=== PATIENT | male | born 1960 | race Caucasian/White ===

== ENCOUNTER 2023-09-28 10:18 | Emergency (ER) | payer OTHER ==
--- NOTE | 2023-09-28 11:10 | ED Physician Documentation ---
PD HPI URI - Stated complaint Stated Complaint: CONGESTION,UNWELL - Chief complaint Chief Complaint: Resp - Additional information Additional information: 63-year-old male with history of type 2 diabetes presents emergency department for nausea, malaise, cough, fevers. Patient says that he feels like he has rhinovirus he feels like there is a lot of congestion in his throat has been having fevers at home but he does state that his fevers at home have been up to 98 F, educated him that fever in adult is 101 F and he says that he has not had any fevers that high. He recently quit smoking right before he got sick. He is coughing up bright green phlegm he also says that his blood sugars have been hard to control despite not eating much feels generalized body aches and very dehydrated no emesis no diarrhea. PD PAST MEDICAL HISTORY - Past Medical History Past Medical History: Yes Cardiovascular: Hypertension Endocrine/Autoimmune: Type 2 diabetes - Past Surgical History Past Surgical History: No - Present Medications Home Medications: Ambulatory Orders Medication Instructions Recorded Confirmed FLUoxetine [PROzac] 20 mg PO DAILY 09/28/23 09/28/23 Gabapentin [Neurontin] 300 mg PO HS 09/28/23 09/28/23 Lisinopril [Zestril] 40 mg PO DAILY 09/28/23 09/28/23 Omeprazole 20 mg PO DAILY 09/28/23 09/28/23 Ondansetron Odt [Zofran Odt] 4 mg TL Q6H PRN #10 tablet 09/28/23 Rosuvastatin Calcium 10 mg PO DAILY 09/28/23 09/28/23 Spironolactone [Aldactone] 12.5 mg PO DAILY 09/28/23 09/28/23 amLODIPine [Norvasc] 10 mg PO DAILY 09/28/23 09/28/23 carvediloL [Coreg] 12.5 mg PO BID 09/28/23 09/28/23 hydroCHLOROthiazide [Hydrodiuril] 12.5 mg PO DAILY 09/28/23 09/28/23 metFORMIN [Glucophage] 500 mg PO DAILY 09/28/23 09/28/23 - Allergies Allergies/Adverse Reactions: Allergies Allergy/AdvReac Type Severity Reaction Status Date / Time No Known Drug Allergies Allergy Verified 09/28/23 10:28 - Social History Does the pt smoke?: No Smoking Status: Never smoker Does the pt drink ETOH?: No Does the pt have substance abuse?: Yes Substance Use and Type: Marijuana - Immunizations Immunizations are current?: Yes PD ED PE NORMAL - Vitals Vital signs reviewed: Yes - General General: Alert and oriented X 3, No acute distress, Well developed/nourished - HEENT HEENT: Atraumatic, PERRL - Cardiac Cardiac: RRR, No gallop - Respiratory Respiratory: Other (bilateral ronchi) - Abdomen Abdomen: Normal bowel sounds, Soft - Back Back: No CVA TTP - Derm Derm: Normal color, Warm and dry, No rash - Neuro Neuro: Alert and oriented X 3, No motor deficit, No sensory deficit, Normal speech - Psych Psych: Normal mood, Normal affect Results - Vitals Vitals: Vital Signs - 24 hr 09/28/23 09/28/23 09/28/23 10:24 11:46 14:08 Temperature 36.5 C 36.0 C L Heart Rate 67 70 58 L Respiratory 16 16 16 Rate Blood Pressure 140/82 H 129/75 O2 Saturation 99 100 Oxygen O2 Source Room air - Labs Labs: Laboratory Tests 09/28/23 09/28/23 09/28/23 11:19 11:35 11:35 WBC 12.8 H RBC 4.92 Hgb 14.3 Hct 43.2 MCV 87.8 MCH 29.1 MCHC 33.1 RDW 13.7 Plt Count 262 MPV 10.4 Neut # (Auto) 10.0 H Lymph # (Auto) 1.7 Lane # (Auto) 0.8 Eos # (Auto) 0.2 Baso # (Auto) 0.0 Absolute Nucleated RBC 0.00 Nucleated RBC % 0.0 Sodium 127 L Potassium 4.5 Chloride 96 L Carbon Dioxide 26 Anion Gap 5.0 L BUN 21 H Creatinine 0.9 Estimated GFR (MDRD) 86 L Glucose 164 H Calcium 9.6 Magnesium 1.6 L Total Bilirubin 0.8 AST 16 ALT 21 Alkaline Phosphatase 121 Total Protein 7.3 Albumin 4.0 Globulin 3.3 Albumin/Globulin Ratio 1.2 Lipase 91 H Nasal Adenovirus (PCR) NOT DETECTED Nasal B. parapertussis DNA (PCR) NOT DETECTED Nasal Coronavir 229E PCR NOT DETECTED Nasal Coronavir HKU1 PCR NOT DETECTED Nasal Coronavir NL63 PCR NOT DETECTED Nasal Coronavir OC43 PCR NOT DETECTED Nasal Enterovir/Rhinovir PCR NOT DETECTED Nasal Influenza B PCR NOT DETECTED Nasal Influenza A PCR NOT DETECTED Nasal Parainfluen 1 PCR NOT DETECTED Nasal Parainfluen 2 PCR NOT DETECTED Nasal Parainfluen 3 PCR DETECTED A Nasal Parainfluen 4 PCR NOT DETECTED Nasal RSV (PCR) NOT DETECTED Nasal B.pertussis DNA PCR NOT DETECTED Nasal C.pneumoniae (PCR) NOT DETECTED Derik Human Metapneumo PCR NOT DETECTED Nasal M.pneumoniae (PCR) NOT DETECTED Nasal SARS-CoV-2 (PCR) NOT DETECTED 09/28/23 13:34 WBC RBC Hgb Hct MCV MCH MCHC RDW Plt Count MPV Neut # (Auto) Lymph # (Auto) Lane # (Auto) Eos # (Auto) Baso # (Auto) Absolute Nucleated RBC Nucleated RBC % Sodium 129 L Potassium Chloride Carbon Dioxide Anion Gap BUN Creatinine Estimated GFR (MDRD) Glucose Calcium Magnesium Total Bilirubin AST ALT Alkaline Phosphatase Total Protein Albumin Globulin Albumin/Globulin Ratio Lipase Nasal Adenovirus (PCR) Nasal B. parapertussis DNA (PCR) Nasal Coronavir 229E PCR Nasal Coronavir HKU1 PCR Nasal Coronavir NL63 PCR Nasal Coronavir OC43 PCR Nasal Enterovir/Rhinovir PCR Nasal Influenza B PCR Nasal Influenza A PCR Nasal Parainfluen 1 PCR Nasal Parainfluen 2 PCR Nasal Parainfluen 3 PCR Nasal Parainfluen 4 PCR Nasal RSV (PCR) Nasal B.pertussis DNA PCR Nasal C.pneumoniae (PCR) Derik Human Metapneumo PCR Nasal M.pneumoniae (PCR) Nasal SARS-CoV-2 (PCR) - Rads (name of study) 2 view chest x-ray Relevant Findings:: Final report received, EMP independent interpretation of test, Other (No acute cardiopulmonary findings.) PD Medical Decision Making - ED course ED course: 63-year-old male presents emerged part for generalized malaise and flulike symptoms. Differentials include but are not limited to influenza, pneumonia, sepsis of unknown origin. Labs are complete in the emergency department and I did reveal that he had a mild leukocytosis, 12.8 he is found to be quite hyponatremic sodium 127 after receiving 1 L of IV fluids his sodium came back to 129. BUN slightly elevated 21 most likely due to dehydration magnesium slightly suppressed at 1.6 he was given 400 mg magnesium oxide. Respiratory panel did detect that he had parainfluenza which is what is causing patient's symptoms. He had quite a bit of rhonchi in both lungs chest x-ray was complete which did not reveal any acute cardiopulmonary abnormalities. Lung sounds significantly improved after receiving 1 DuoNeb. He was given Tylenol ibuprofen in the emergency department for his generalized bodyaches. Prescription of Zofran was sent to his preferred pharmacy and patient was told to follow-up with his primary care provider soon as possible outpatient for reevaluation of his labs. Patient is on spironolactone which could be contributing to his hyponatremia patient had no signs of confusion or lethargy making me concerned that he needed to be hospitalized. At this point in time patient is safe for discharge she is given strict return precautions all questions answered. Departure - Departure Disposition: Home, Self Care Clinical Impression: Influenza, Hyponatremia Instructions: ED Flu Prescriptions: Ondansetron Odt [Zofran Odt] 4 mg TL Q6H PRN #10 tablet PRN Reason: Nausea / Vomiting Comments: They have a trusting us with your care you have been evaluated in the emergency department and have been found to have the flu. Given that you have had the flu since September 19 we are outside of the window to start you on a medication called Tamiflu. I did send an antinausea medication to [facility] in [place] for you to clam picker if you are feeling like you are having difficulty managing her nausea at home. Is very important going home that you are staying well-hydrated with drinks that have electrolytes in it such as coconut water, Pedialyte, or Gatorade. We found you to have pretty low sodium we have given you 1 L of IV saline here in the emergency department but is very important that you reevaluate your labs in a couple days with your primary care provider. If you are starting to notice any confusion, severe lethargy, or any other concerning symptoms please come back to the emergency department for further evaluation. Forms: PCP List Discharge Date/Time: 09/28/23 14:10
[2023-09-28 11:41] LABS: BASOPHILS % (AUTO) 0.2 %; EOSINOPHILS # (AUTO) 0.2 10^3/uL (0.0-0.7); EOSINOPHILS % (AUTO) 1.6 %; HCT - HEMATOCRIT 43.2 % (42.0-52.0); HGB - HEMOGLOBIN 14.3 g/dL (14.0-18.0); LYMPHOCYTES # (AUTO) 1.7 10^3/uL (1.5-3.5); LYMPHOCYTES % (AUTO) 13.5 %; MEAN CORPUSCULAR HEMOGLOBIN 29.1 pg (27.0-31.0); MEAN CORPUSCULAR HGB CONC 33.1 g/dL (32.0-36.0); MEAN CORPUSCULAR VOLUME 87.8 fL (80.0-94.0); MEAN PLATELET VOLUME 10.4 fL (7.4-11.4); MONOCYTES # (AUTO) 0.8 10^3/uL (0.0-1.0); MONOCYTES % (AUTO) 5.9 %; NEUTROPHILS % (AUTO) 78.1 %; PLT - PLATELET COUNT 262 10^3/uL (130-450); RED BLOOD COUNT 4.92 10^6/uL (4.70-6.10); RED CELL DISTRIBUTION WIDTH 13.7 % (12.0-15.0); WHITE BLOOD COUNT 12.8 x10^3/uL (4.8-10.8)
[2023-09-28] MEDS: IPRATROPIUM/ALBUTEROL 3 ML NEB INH STA (11:44)
--- NOTE | 2023-09-28 11:51 | XRAY Report ---
PROCEDURE: Chest 2V INDICATIONS: SOA, cough TECHNIQUE: 2 views of the chest were obtained. COMPARISON: None. FINDINGS: Surgical changes and devices: None. Lungs and pleura: No pleural effusions or pneumothorax. Lungs are clear. Mediastinum: Mediastinal contours appear normal. Heart size is normal. Bones and chest wall: No suspicious bony lesions. Overlying soft tissues appear unremarkable. IMPRESSION: Normal two-view chest x-ray Reviewed by: Jose Miguel Zarate MD on 09/28/2023 10:49 AM ERNIE Approved by: Jose Miguel Zarate MD on 09/28/2023 10:49 AM ERNIE Station ID: [id number]
[2023-09-28 12:01] LABS: ALBUMIN/GLOBULIN RATIO 1.2 (1.0-2.2); BILIRUBIN,TOTAL 0.8 mg/dL (0.2-1.0); CALCIUM 9.6 mg/dL (8.5-10.3); CREATININE 0.9 mg/dL (0.6-1.3); MAGNESIUM 1.6 mg/dL (1.7-2.3); POTASSIUM 4.5 mmol/L (3.5-4.5); TOTAL PROTEIN 7.3 g/dL (6.4-8.9)
[2023-09-28 12:14] LABS: B. PARAPERTUSSIS- RESP PCR PAN NOT DETECTED; B. PERTUSSIS- RESP PCR PANEL NOT DETECTED; C. PNEUMONIAE- RESP PCR PANEL NOT DETECTED; CORONAVIRUS 229E-RESP PCR NOT DETECTED; CORONAVIRUS HKU1-RESP PCR NOT DETECTED; CORONAVIRUS NL63-RESP PCR NOT DETECTED; CORONAVIRUS OC43-RESP PCR NOT DETECTED; HUMAN METAPNEUMOVIRUS NOT DETECTED; INFLUENZA A- RESP PCR PANEL NOT DETECTED; INFLUENZA B - RESP PCR PANEL NOT DETECTED; M. PNEUMONIAE- RESP PCR PANEL NOT DETECTED; PARAINFLUENZA VIRUS 1 NOT DETECTED; PARAINFLUENZA VIRUS 2 NOT DETECTED; PARAINFLUENZA VIRUS 3 DETECTED; PARAINFLUENZA VIRUS 4 NOT DETECTED; RHINOVIRUS/ENTEROVIRUS NOT DETECTED; RSV- RESP PCR PANEL NOT DETECTED; SARS-CoV-2 -RESP PCR PANEL NOT DETECTED
[2023-09-28] MEDS: ACETAMINOPHEN 325 MG TABLET PO STA (12:21)
[2023-09-28] MEDS: MAGNESIUM OXIDE 400 MG TABLET PO STA (12:21)
[2023-09-28] MEDS: SODIUM CHLORIDE 0.9% 1,000 ML IV ONE (12:21)
[2023-09-28 14:12] VITALS: BP 129/75; O2SAT 100
== END 2023-09-28 14:10 | disposition home or self-care (01) ==
LOC: ED 10:18
DX: J11.1 Influenza due to unidentified influenza virus with other respiratory manifestations (principal); E87.1 Hypo-osmolality and hyponatremia; I10 Essential (primary) hypertension; E11.9 Type 2 diabetes mellitus without complications; Z79.84 Long term (current) use of oral hypoglycemic drugs; Z79.899 Other long term (current) drug therapy
CPT/HCPCS: 36415; 71046; 80053; 83690; 83735; 84295; 85025; 87633; 94640; 96360; 99284; A9270